=== PATIENT | female | born 1985 | race Caucasian/White ===

== ENCOUNTER 2017-10-27 14:29 | Emergency (ER) | payer OTHER ==
[~2017-10-27] VITALS: Ht 162.6 cm; Wt 113.4 kg
[2017-10-27 14:35] VITALS: BP_SYST 151
[2017-10-27] MEDS ORDERED: IPRATROPIUM/ALBUTEROL SULFATE 3 ML AMPUL.NEB INH ONE (15:00)
[2017-10-27] MEDS ORDERED: DEXAMETHASONE SOD PHOSPHATE 10 MG/ML VIAL IVP ONE (15:00)
[2017-10-27] MEDS ORDERED: NACL 0.9% 1,000 ML IV ONE (15:00)
[2017-10-27 15:24] LABS: BASOPHILS % (AUTO) 0.2 % (0.0-2.0); HEMATOCRIT 46.1 % (36-48); HEMOGLOBIN 14.9 g/dL (12.0-16.0); LYMPHOCYTES # (AUTO) 0.6 K/uL (1.0-5.5); LYMPHOCYTES % (AUTO) 6.2 % (20.5-51.5); MEAN CORPUSCULAR HEMOGLOBIN 28 pg (27-31); MEAN CORPUSCULAR HGB CONC 32 % (32-36); MEAN CORPUSCULAR VOLUME 86 fL (79.0-98.0); MONOCYTES # (AUTO) 0.3 K/uL (0.0-1.0); MONOCYTES % (AUTO) 2.5 % (1.7-9.3); NEUTROPHILS # (AUTO) 9.3 K/uL (1.8-7.7); NEUTROPHILS % (AUTO) 91.1 % (40.0-70.0); PLATELET COUNT (AUTO) 167 K/uL (130-430); RED BLOOD CELL COUNT(AUTO) 5.35 MIL/uL (4.2-6.2); WHITE BLOOD COUNT (AUTO) 10.2 K/uL (4.8-10.8)
[2017-10-27 15:28] LABS: CALCIUM 8.8 mg/dL (8.4-11.0); CREATININE 0.86 mg/dL (0.55-1.30); POTASSIUM 3.7 mmol/L (3.5-5.1)
[2017-10-27 15:33] LABS: ALBUMIN 3.1 g/dL (3.4-4.8); TOTAL BILIRUBIN 0.3 mg/dL (0.0-1.0)
[2017-10-27 16:10] LABS: BILIRUBIN,URINE NEGATIVE (NEGATIVE); BLOOD, URINE NEGATIVE (NEGATIVE); CLARITY/URINE SL CLOUDY (CLEAR); COLOR,URINE YELLOW (YELLOW); GLUCOSE,URINE NEGATIVE (NEGATIVE); KETONES,URINE NEGATIVE (NEGATIVE); LEUKOCYTE ESTERASE ,URINE TRACE (NEGATIVE); NITRITE, URINE NEGATIVE (NEGATIVE); PH,URINE 5.5 (5.0-8.0); PROTEIN URINE NEGATIVE (NEGATIVE); UROBILINOGEN,URINE 0.2 (0.2-1.0)
[2017-10-27 16:17] LABS: BACTERIA,URINE MODERATE /HPF (None Seen); MUCUS,URINE 1+ /LPF (None Seen); RBC,URINE 0-3 /HPF (0-3)
[2017-10-27 17:15] VITALS: BP_SYST 142
== END 2017-10-27 17:15 | disposition home or self-care (01) ==
LOC: SED 14:29
DX: J20.9 Acute bronchitis, unspecified (principal); K21.9 Gastro-esophageal reflux disease without esophagitis; J45.909 Unspecified asthma, uncomplicated
CPT/HCPCS: 36415; 71045; 80053; 81000; 81025; 83880; 84484; 85025; 87086; 93005; 94640; 96361; 96374; 99285; J1100; J7030

== ENCOUNTER 2018-10-10 18:35 | Emergency (ER) | payer OTHER ==
[~2018-10-10] VITALS: Ht 160 cm; Wt 90.7 kg
--- NOTE | 2018-10-10 19:10 | NUR ---
Patient called for triage, in bathroom
[2018-10-10 19:15] VITALS: BP_SYST 151
--- NOTE | 2018-10-10 19:20 | NUR ---
Patient triaged and placed in waiting room. VSS and patient appears in no acute distress at this time. Accompanied by family, awaiting available bed, and MD notified of need for MSE.
--- NOTE | 2018-10-10 19:37 | NUR ---
Patient to ER bed 08 for evaluation. Side rails up.
--- NOTE | 2018-10-10 19:38 | NUR ---
Pt AAOx4 ambulated into ED c/o cough x 1 month. Pt has been taking cough suppressant with no relief. Pt now concerned because she is now having difficulty sleeping due to cough. No other injuries/complaints per pt/noted. Will continue to monitor.
--- NOTE | 2018-10-10 20:18 | NUR ---
Jackeline castrejon in ED - 10/10/18 at 2031 by [email or web address] SAIDA Shepard at bedside examining patient.
--- NOTE | 2018-10-10 20:20 | NUR ---
ER Dr. Mayfield at bedside examining patient.
--- NOTE | 2018-10-10 20:35 | NUR ---
Pt ambulated to bathroom with steady gait to provide urine sample
[2018-10-10] MEDS: LevALBUTEROL HCL 1.25 MG/0.5 ML *CONC.* VIAL.NEB (XOPENEX CONC.) INH ONE (20:45)
[2018-10-10] MEDS: PROMETHAZINE 6.25 MG/ CODEINE 10 MG/ 5 ML PO ONE (20:46)
--- NOTE | 2018-10-10 20:48 | NUR ---
Respiratory at bedside for breathing tx
--- NOTE | 2018-10-10 21:24 | NUR ---
Pt resting comfortably in bed with no signs of distress. Mother at bedside. Will continue to monitor.
--- NOTE | 2018-10-10 22:12 | NUR ---
ER Dr. Mayfield at bedside updating patient.
[2018-10-10] MEDS: PREDNISONE 20 MG TABLET PO ONE (22:35)
--- NOTE | 2018-10-10 22:40 | NUR ---
Patient given written and verbal discharge instructions and verbalizes understanding. ER MD Mayfield discussed with patient the results and treatment provided. Patient in stable condition. ID arm band removed. Rx of Promethazine, Prednisone given. Patient educated on pain management and to follow up with PMD. Pain Scale 1. Opportunity for questions provided and answered. Medication side effect fact sheet provided.
[2018-10-10 22:42] VITALS: BP_SYST 136
== END 2018-10-10 22:40 | disposition home or self-care (01) ==
LOC: SED 18:35
DX: R05 Cough (principal); R03.0 Elevated blood-pressure reading, without diagnosis of hypertension; K21.9 Gastro-esophageal reflux disease without esophagitis; J45.909 Unspecified asthma, uncomplicated
CPT/HCPCS: 71045; 94640; 99283; J7512; J7612

== ENCOUNTER 2018-10-23 20:31 | Emergency (ER) | payer OTHER ==
[~2018-10-23] VITALS: Ht 160 cm; Wt 90.7 kg
[2018-10-23 20:35] VITALS: BP_SYST 146
[2018-10-23 22:45] VITALS: BP_SYST 146
== END 2018-10-23 22:45 | disposition home or self-care (01) ==
LOC: SED 20:31
DX: J02.9 Acute pharyngitis, unspecified (principal); R03.0 Elevated blood-pressure reading, without diagnosis of hypertension; K21.9 Gastro-esophageal reflux disease without esophagitis; J45.909 Unspecified asthma, uncomplicated
CPT/HCPCS: 99283

== ENCOUNTER 2019-07-14 18:47 | Inpatient (IN) | payer MEDICAID, OTHER ==
[~2019-07-14] VITALS: Ht 160 cm; Wt 117.9 kg
[2019-07-14 18:50] VITALS: BP_SYST 122
[2019-07-14 20:47] LABS: BASOPHILS # (AUTO) 0.1 K/uL (0.0-0.2); BASOPHILS % (AUTO) 0.6 % (0.0-2.0); EOSINOPHILS # (AUTO) 0.3 K/uL (0.0-0.4); EOSINOPHILS % (AUTO) 3.1 % (0.0-4.0); HEMATOCRIT 40.2 % (36-48); HEMOGLOBIN 13.5 g/dL (12.0-16.0); LYMPHOCYTES # (AUTO) 2.2 K/uL (1.0-5.5); LYMPHOCYTES % (AUTO) 24.4 % (20.5-51.5); MEAN CORPUSCULAR HEMOGLOBIN 29 pg (27-31); MEAN CORPUSCULAR HGB CONC 34 % (32-36); MEAN CORPUSCULAR VOLUME 87 fL (79.0-98.0); MONOCYTES # (AUTO) 0.7 K/uL (0.0-1.0); MONOCYTES % (AUTO) 7.5 % (1.7-9.3); NEUTROPHILS # (AUTO) 5.9 K/uL (1.8-7.7); NEUTROPHILS % (AUTO) 64.4 % (40.0-70.0); PLATELET COUNT (AUTO) 193 K/uL (130-430); RED BLOOD CELL COUNT(AUTO) 4.63 MIL/uL (4.2-6.2); RED CELL DISTRIBUTION WIDTH 14.2 % (9.0-15.0); WHITE BLOOD COUNT (AUTO) 9.1 K/uL (4.8-10.8)
[2019-07-14] MEDS ORDERED: IPRATROPIUM/ALBUTEROL SULFATE 3 ML AMPUL.NEB (DUONEB) INH ONE (21:00)
[2019-07-14 21:01] LABS: CALCIUM 8.1 mg/dL (8.4-11.0); CREATININE 0.79 mg/dL (0.55-1.30); POTASSIUM 3.7 mmol/L (3.5-5.1)
[2019-07-14 21:07] LABS: ALBUMIN 2.7 g/dL (3.4-4.8); TOTAL BILIRUBIN 0.2 mg/dL (0.0-1.0)
[2019-07-14 21:16] LABS: INR 0.9 (0.8-1.2); PROTHROMBIN TIME 9.3 SECS (9.5-12.5)
[2019-07-14] MEDS ORDERED: AZITHROMYCIN 500 MG in NS 250 ML IV ONE (23:30)
[2019-07-14] MEDS ORDERED: cefTRIAXone 1 GM in D5W 50 ML IV ONE (23:30)
[2019-07-14] MEDS ORDERED: NACL 0.9% 1,000 ML IV ONE (23:30)
[2019-07-14] MEDS ORDERED: cefTRIAXone 1 GM IVPB PREMIX 50 ML IV ONE ×2 (23:30→23:42)
[2019-07-15] MEDS ORDERED: AZITHROMYCIN 500 MG/VIAL (ZITHROMAX) IV ONE (02:02)
[2019-07-15] MEDS ORDERED: D5/0.45 NS 1,000 ML IV SCH (05:30)
[2019-07-15] MEDS ORDERED: ALBMDI INH (05:47)
[2019-07-15 06:03] VITALS: BP_SYST 120
[2019-07-15] MEDS ORDERED: ALBUTEROL SULFATE 0.083% 2.5 MG/3 ML VIAL.NEB INH PRN (06:15)
[2019-07-15 08:00] VITALS: BP_SYST 155
[2019-07-15 08:15] VITALS: BP_SYST 120
[2019-07-15] MEDS: ALBUTEROL SULFATE 0.083% 2.5 MG/3 ML VIAL.NEB INH SCH ×5 (08:16→23:00)
[2019-07-15 11:26] VITALS: BP_SYST 115
[2019-07-15] MEDS ORDERED: PREDNISONE 20 MG TABLET PO ONE (11:30)
[2019-07-15] MEDS: cefTRIAXone 1 GM in D5W 50 ML IV SCH (11:49)
[2019-07-15 15:32] VITALS: BP_SYST 125
[2019-07-15] MEDS ORDERED: FLU VACC QS2019-20 36MOS UP/PF 60 MCG/0.5 ML SYRINGE I.M. PRN (17:00)
[2019-07-15 20:00] VITALS: BP_SYST 110
[2019-07-15] MEDS: BUDESONIDE 0.5 MG/2 ML AMPUL.NEB INH SCH (20:56)
[2019-07-15] MEDS ORDERED: AZITHROMYCIN 250 MG TABLET PO SCH (21:00)
[2019-07-15] MEDS: AZITHROMYCIN 250 MG TABLET PO SCH (22:39)
[2019-07-16] VITALS: BP_SYST 136
[2019-07-16] MEDS: ALBUTEROL SULFATE 0.083% 2.5 MG/3 ML VIAL.NEB INH SCH ×5 (03:00→23:40)
[2019-07-16] MEDS: BUDESONIDE 0.5 MG/2 ML AMPUL.NEB INH SCH ×2 (07:27→20:06)
[2019-07-16 08:00] VITALS: BP_SYST 142
[2019-07-16] MEDS: PREDNISONE 20 MG TABLET PO SCH (08:19)
[2019-07-16] MEDS ORDERED: PREDNISONE 20 MG TABLET PO ONE (10:15)
[2019-07-16 10:41] VITALS: BP_SYST 142
[2019-07-16] MEDS ORDERED: [UNRECOGNIZED DRUG - OTHER] (10:58)
[2019-07-16] MEDS ORDERED: PRED20TA PO (10:59)
[2019-07-16] MEDS ORDERED: FLUT1DIS5 IH (11:00)
[2019-07-16] MEDS ORDERED: AZIT (11:09)
[2019-07-16] MEDS: cefTRIAXone 1 GM in D5W 50 ML IV SCH (11:26)
[2019-07-16 12:53] VITALS: BP_SYST 154
[2019-07-16 16:59] VITALS: BP_SYST 152
[2019-07-16 20:00] VITALS: BP_SYST 161
[2019-07-16] MEDS: AZITHROMYCIN 250 MG TABLET PO SCH (21:13)
[2019-07-17 00:25] VITALS: BP_SYST 146
[2019-07-17] MEDS: ALBUTEROL SULFATE 0.083% 2.5 MG/3 ML VIAL.NEB INH SCH ×2 (03:00→07:00)
[2019-07-17] MEDS: BUDESONIDE 0.5 MG/2 ML AMPUL.NEB INH SCH (07:00)
[2019-07-17 08:00] VITALS: BP_SYST 157
[2019-07-17] MEDS: PREDNISONE 20 MG TABLET PO SCH (08:56)
[2019-07-17 10:51] VITALS: BP_SYST 157
== END 2019-07-17 12:44 | disposition home or self-care (01) | DRG 566 ==
LOC: SED 18:47 → SMU 07-15 05:17
PROVIDERS: ADMIT Specialist; ATTEND Specialist
DX: O99.511 Diseases of the respiratory system complicating pregnancy, first trimester (principal); J15.9 Unspecified bacterial pneumonia; J45.901 Unspecified asthma with (acute) exacerbation; O98.911 Unspecified maternal infectious and parasitic disease complicating pregnancy, first trimester; B95.8 Unspecified staphylococcus as the cause of diseases classified elsewhere; Z82.49 Family history of ischemic heart disease and other diseases of the circulatory system; Z79.899 Other long term (current) drug therapy; Z3A.09 9 weeks gestation of pregnancy
CPT/HCPCS: 36415; 71045; 71046-TC; 80053; 81025; 82550-TC; 83605; 83880; 84484; 85025; 85379; 85610-TC; 86710; 87040-TC; 93005; 94640; 94760; 96365; 96367; 99285; J0456; J0696; J7030; J7060; J7512; J7613; J7620; J7626; Q0144

== ENCOUNTER 2019-10-08 12:38 | Emergency (ER) | payer MEDICAID ==
[~2019-10-08] VITALS: Ht 160 cm; Wt 119.7 kg
[~2019-10-08 12:38] MED LIST: ALBMDI INH; AZIT; FLUT1DIS5 IH; PRED20TA PO
[2019-10-08 12:40] VITALS: BP_SYST 136
--- NOTE | 2019-10-08 12:40 | NUR ---
Patient triaged and placed in waiting room. VSS and patient appears in no acute distress at this time. Accompanied by SELF, awaiting available bed, and MD notified of need for MSE.
--- NOTE | 2019-10-08 12:57 | NUR ---
BROUGHT BACK TO BED #5 AND REPORT GIVEN TO NURSE
--- NOTE | 2019-10-08 13:01 | NUR ---
PT STATES ONE WEEK WITH COUGHING GREEN/WHITE SPUTUM, SOB WITH EXERTION, PT STATES SHE IS 17 WEEKS , . DENIES ANY VAGINAL BLEEDING OR DISCHARGE. STATES SHE FEELS THE BABY KICKING A LOT. PT STATES CHEST WALL PAIN WITH COUGHING 4/10.
--- NOTE | 2019-10-08 13:04 | NUR ---
KORY ARCE AT BEDSIDE FOR EVALUATION
[2019-10-08 14:44] VITALS: BP_SYST 128
--- NOTE | 2019-10-08 14:45 | NUR ---
Patient given written and verbal discharge instructions and verbalizes understanding. ER MD discussed with patient the results and treatment provided. Patient in stable condition. ID arm band removed. Rx of ALBUTEROL, TAMIFLU, AZITHROMYCIN, TYLENOL given. Patient educated on pain management and to follow up with PMD. Pain Scale 0/10. Opportunity for questions provided and answered. Medication side effect fact sheet provided.
== END 2019-10-08 14:45 | disposition home or self-care (01) ==
LOC: SED 12:38
DX: O26.892 Other specified pregnancy related conditions, second trimester (principal); R05 Cough; J45.909 Unspecified asthma, uncomplicated; J44.9 Chronic obstructive pulmonary disease, unspecified; K21.9 Gastro-esophageal reflux disease without esophagitis; Z3A.19 19 weeks gestation of pregnancy; Z79.899 Other long term (current) drug therapy
CPT/HCPCS: 36415; 86710; 99283

== ENCOUNTER 2023-03-19 19:02 | Emergency (ER) | payer MEDICAID, OTHER ==
[~2023-03-19] VITALS: Ht 160 cm; Wt 117.9 kg
[2023-03-19 19:33] VITALS: BP_SYST 128
--- NOTE | 2023-03-19 19:33 | NUR ---
Triaged and placed patient back to the waiting room. No acute respiratory distress at this time. VSS. Informed patient to notify ED staff for any changes in condition or worsening of symptoms while waiting to be seen by a provider. Patient verbalized understanding.
[2023-03-19 21:51] LABS: BASOPHILS % (AUTO) 0.5 % (0.0-2.0); EOSINOPHILS # (AUTO) 0.5 K/uL (0.0-0.4); EOSINOPHILS % (AUTO) 6.2 % (0.0-4.0); HEMOGLOBIN 11.6 g/dL (12.0-16.0); LYMPHOCYTES # (AUTO) 2.1 K/uL (1.0-5.5); LYMPHOCYTES % (AUTO) 26.7 % (20.5-51.5); MEAN CORPUSCULAR HEMOGLOBIN 23 pg (27-31); MEAN CORPUSCULAR HGB CONC 32 % (32-36); MEAN CORPUSCULAR VOLUME 73 fL (79.0-98.0); MONOCYTES # (AUTO) 0.6 K/uL (0.0-1.0); MONOCYTES % (AUTO) 7.2 % (1.7-9.3); NEUTROPHILS # (AUTO) 4.6 K/uL (1.8-7.7); NEUTROPHILS % (AUTO) 59.4 % (40.0-70.0); PLATELET COUNT (AUTO) 210 K/uL (130-430); RED BLOOD CELL COUNT(AUTO) 4.96 MIL/uL (4.2-6.2); RED CELL DISTRIBUTION WIDTH 18.1 % (9.0-15.0); WHITE BLOOD COUNT (AUTO) 7.8 K/uL (4.8-10.8)
[2023-03-19 22:03] LABS: ALBUMIN 2.8 g/dL (3.4-4.8); CALCIUM 8.3 mg/dL (8.4-11.0); CREATININE 0.9 mg/dL (0.55-1.30); TOTAL BILIRUBIN 0.2 mg/dL (0.0-1.0)
--- NOTE | 2023-03-19 22:42 | NUR ---
Patient placed in ER Hallway 1 for evaluation. Bed in lowest position with siderails up. Report given to STEVEN DIAZ for continuity of care. Instructed to notify ED staff for any changes in condition or worsening of symptoms. Patient verbalized understanding.
--- NOTE | 2023-03-19 22:52 | NUR ---
Dr. EDWARDS AT BEDSIDE examining the patient.
[2023-03-19 23:21] VITALS: BP_SYST 120
--- NOTE | 2023-03-19 23:21 | NUR ---
Patient given written and verbal discharge instructions and verbalizes understanding. ER DR EDWARDS discussed with patient the results and treatment provided. Patient in stable condition. ID arm band removed. NO Rx given. Patient educated on pain management and to follow up with PMD. Pain Scale 0/10. Opportunity for questions provided and answered. Medication side effect fact sheet provided.
== END 2023-03-19 23:21 | disposition home or self-care (01) ==
LOC: SED 19:02
DX: R60.0 Localized edema (principal); J44.9 Chronic obstructive pulmonary disease, unspecified; K21.9 Gastro-esophageal reflux disease without esophagitis; Z79.899 Other long term (current) drug therapy
CPT/HCPCS: 36415; 80053; 85025; 93970; 99284